=== PATIENT | male | born 1995 | race Caucasian/White ===

== ENCOUNTER 2025-11-15 01:45 | Day surgery (SDC) | payer OTHER, SELFPAY ==
[2025-08-27 14:27] VITALS: BMI 26.9
[2025-10-30 08:31] VITALS: BMI 26.9
--- OUTSIDE RECORDS SUMMARY | 2025-11-15 01:49 | XMS_ITS | Clinical Summary ---
Author Organization [facility] Address [address] [place] [address] Care Team Providers Care C Software Engineer Name Role Phone Tyson Keith MD Primary Care Provider Allergies Active Allergy Reactions Criticality Noted Date Comments Amoxicillin-Pot Clavulanate Unknown 08/30/20 13 Penicillins Hives,Rash Low 06/02/2012 Medications busPIRone (BUSPAR) 10 MG tabletIndicatio ns:Anxiety Take 1 tablet (10 mg total) by mouth 2 (two) times daily. 180 tablet 1 2 Active Additional Information Patient not taking.Reported on 04/04/2023 LORazepam (ATIVAN) 1 MG tabletIndicatio ns:Anxiety Take 1 tablet (1 mg total) by mouth every 8 (eight) hours as needed for Anxiety. 30 tablet 2 Active Additional Information Patient not taking.Reported on 04/04/2023 PARoxetine (PAXIL) 10 MG tabletIndicatio ns:Anxiety Take 1 tablet (10 mg total) by mouth every morning. 30 tablet 3 2 Active Additional Information Patient not taking.Reported on 04/04/2023 Active Problems Problem Noted Date Diagnosed Date Epistaxis 04/04/2023 Assessment & Plan (04/04/2023 5:13 PM CDT): On and off epistaxis for years. States not you to him. Has been chronic. Was never evaluated by ENT.--We will go ahead and refer patient to ENT. Call if he has profuse epistaxis or go to ER. Allergic rhinitis 04/04/2023 Assessment & Plan (04/04/2023 5:13 PM CDT): Start Zyrtec 10 mg nightly. Monitor. Major depressive disorder 06/07/2022 Assessment & Plan (06/07/2022 9:57 AM CDT): Start patient on Lexapro 10 mg daily. She was advised to take Lexapro compliantly and faithfully and that it will take at least 3 to 4 weeks to kick in. He denies any suicidal ideation/self-harm. Monitor. Counseling done. Reevaluate patient in 3 to 4 weeks. Abdominal pain, right lower quadrant 04/22/2020 Anxiety 03/15/2019 Assessment & Plan (08/18/2022 2:13 PM CDT): Currently is on Lexapro 10 mg daily. He states Lexapro not really helping him. He was on BuSpar before 7.5 mg twice daily. Will wean off Lexapro slowly by starting at 5 mg daily for 2 weeks then every other day for another 2 weeks then discontinue. Start patient on BuSpar 10 mg twice daily. Consider starting patient on Paxil. Reevaluate patient in 2 weeks. Otherwise she will call me by phone.--- Again, states she is not depressed. Denies any suicidal ideation/self-harm. He is more anxious for no reason. Discussed adverse effects of meds. Counseling done. Assessment & Plan (06/07/2022 9:57 AM CDT): He stopped taking his BuSpar years ago. We will get started on Lexapro 10 mg daily. Monitor. Counseling done. Evaluate patient in 3 to 4 weeks. Assessment & Plan (04/02/2019 9:08 AM CDT): Anxiety is much better. Doing well with BuSpar 7.5 mg twice daily. Advised to continue same dose for now. No adverse reactions noted. Assessment & Plan (03/15/2019 4:31 PM CDT): Trial of BuSpar 7.5 mg twice daily. Adverse effects discussed. We will continue to monitor. Right otitis media 02/20/2015 Assessment & Plan (04/04/2023 4:56 PM CDT): Right tympanic membrane congested with poor light reflex and landmarks.--Start patient on Ceftin 250 mg twice daily for 10 days. May take Tylenol Extra Strength 2 every hours as needed. Increase fluids. Cellulitis of lower extremity 08/30/2013 Overview (03/15/2019): Laterality: Left Attention deficit hyperactivity disorder (ADHD) 03/12/2011 Overview (08/26/2021): Overview: Immunizations Immunization Administration Dates Next Due Tdap (Boostrix) 06/23/2011 Family History Relation Status Comments Father Alive Mother Alive Social History Tobacco Use Types Packs/Day Years Used Date Smoking Tobacco: Former Cigarettes 0.5 2 Passive Smoke Exposure: Past Smokeless Tobacco: Never Tobacco Cessation:Counseling Given: Not Answered Alcohol Use Standard Drinks/Week Comments Yes 0 (1 standard drink = 0.6 oz pur e alcohol) socially PHQ-2 Answer Date Recorded Patient Health Questionnaire-2 Score 0 04/04/2023 Sex and Gender Information Value Date Recorded Sex Assigned at Male 05/15/2025 2:59 PM CDT Legal Sex Male 7:39 PM CDT Gender Identity Not on file Sexual Orientation Not on file Last Filed Vital Signs Vital Sign Reading Time Taken Comments Blood Pressure 126/78 04/04/2023 4:47 PM CDT Pulse 78 04/04/2023 4:47 PM CDT Temperature 36.9 C (98.4 F) 04/04/2023 4:47 PM CDT Respiratory Rate 20 04/04/2023 4:47 PM CDT Oxygen Saturation 96% 04/04/2023 4:47 PM CDT Inhaled Oxygen Concentration - - Weight 88.3 kg (194 lb 9.6 oz) 04/04/2023 4:47 P M CDT Height 188 cm (6' 2) 04/04/2023 4:47 PM CDT Body Mass Index 24.99 04/04/2023 4:47 PM CDT Plan of Treatment Health Maintenance Due Date Last Done Comments Annual Physical 1999 Hepatitis C 2014 Hepatitis B Vaccines (1 of 3 - 19+ 3-dose series) 2015 DTaP, Tdap and Td Vaccines ( 2 - Td or Tdap) 06/23/2021 06/23/2011 HPV Vaccines (1 - 3-dose SCD M series) 2023 PHQ-2 (Physician [place]) 11/28/2024 COVID-19 Vaccine (1 - 2024-2 6 season) 2025 Influenza Adult (#1) 2025 Hepatitis A Vaccines Aged Out No long er eligible based on patient's age to complete this topic Meningococcal B Vaccine Aged Out No l onger eligible based on patient's age to complete this topic Meningococcal Vaccine Aged Out No arelis ana eligible based on patient's age to complete this topic Pneumococcal Vaccine: Pediat rics (0 to 5 Years) and At-Risk Patients (6 to 49 Years) Aged Out No longer eligi ble based on patient's age to complete this topic RSV Immunizations Under 20 Months Aged Out No longer eligible based on patient's age to complete this topic Insurance [employer] Care Teams C Software Engineer Relationship Specialty Start Date End Date Tyson Keith MD PCP - General FAMILY PRACTICE 03/12/19
--- OUTSIDE RECORDS SUMMARY | 2025-11-15 01:49 | XMS_ITS | Clinical Summary ---
Author Organization [facility] Address [address] [place] [address] Care Team Providers Care Veterinary Practice Manager Name Role Phone Tyson Keith MD Primary Care Provider [phone] Source Comments [facility],non-owned Affiliates and Associated Physician Practices is amultiple site organization consisting of ambulatory clinics and hospital sitesin [place], [place], [place] and [place]. This disclosure is being madepursuant to the Care Everywhere program and may not contain all information available regarding this patient. Last updated 18.[facility] Allergies Active Allergy Reactions Criticality Noted Date Comments Amoxicillin Urticaria 06/02/2012 Medications * This document contains information received from the source organization and may not represent a complete record from that organization. * Be aware that medications may not be up to date on this document. Alwaysverify current medications with the patient. sertraline (ZOLOFT) 25 MG tablet Take 25 mg by mouth once daily Active docusate sodium (COLACE) 100 MG capsule Take 1 capsule by mouth once daily as needed for Constipation 30 capsule 0 Active Active Problems Problem Noted Date Diagnosed Date Abdominal pain, right lower quadrant 04/22/2020 Metatarsal fracture 06/02/2012 Attention deficit hyperactivity disorder (ADHD) 03/12/2011 Overview (10/05/2015): Social History Tobacco Use Types Packs/Day Years Used Date Smoking Tobacco: Some Days Smokeless Tobacco: Never Comments:1 pack every other week Alcohol Use Standard Drinks/Week Comments Yes 7 (1 standard drink = 0.6 oz pur e alcohol) AUDIT-C Answer Date Recorded Q1: How often do you have a drink containing alc ohol? 2-4 times a month 04/23/2020 Q2: How many drinks containi ng alcohol do you have on a typical day when you are drinking? 7 to 9 04/23/2020 Q3: How often do you have si x or more drinks on one occasion? 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 Gender Identity Not on file Sexual Orientation Not on file Last Filed Vital Signs Vital Sign Reading Time Taken Comments Blood Pressure 120/59 04/24/2020 11:36 AM CDT Pulse 67 04/24/2020 11:36 AM CDT Temperature 36.2 C (97.2 F) 04/24/2020 11:36 AM CDT Respiratory Rate 16 04/24/2020 11:36 AM CDT Oxygen Saturation 98% 04/24/2020 11:36 AM CDT Inhaled Oxygen Concentration - - Weight 86 kg (189 lb 9.5 oz) 04/22/2020 11:09 PM CDT Height 188 cm (6' 2) 04/22/2020 7:23 PM CDT Body Mass Index 24.34 04/22/2020 7:23 PM CDT Plan of Treatment Health Maintenance Due Date Last Done Comments HIV SCREENING 2011 HEPATITIS C SCREENING 06/21/2014 DTAP/TDAP/TD VACCINES (1 - Tdap) 2015 HEPATITIS B VACCINE (1 of 3 - 19+ 3-dose series) 2015 PNEUMOCOCCAL VACCINE (1 of 2 - PCV) 2015 HPV VACCINE (1 - 3-dose SCDM series) 2023 DEPRESSION SCREENING 11/28/2024 COVID-19 VACCINE (1 - 2024-2 6 season) 2025 INFLUENZA VACCINE (#1) 2025 ZOSTER VACCINE (1 of 2) 2046 HIB VACCINE Aged Out No longer eligi ble based on patient's age to complete this topic MENINGOCOCCAL (Group B) VACC INE SHARED DECISION-MAKING Aged Out No longer eligibl e based on patient's age to complete this topic MENINGOCOCCAL GROUPS A/C/Y/W VACCINE Aged Out No longer eligible b ased on patient's age to complete this topic Insurance [employer] Advance Directives * Full Code (Latest Code Status on File) Date Activated Date Inactivated Comments 04/22/2020 11:11 PM 04/24/2020 5:01 PM Care Teams Veterinary Practice Manager Relationship Specialty Start Date End Date Tyson Keith MD PCP - General Family Medicine 04/23/20
[2025-11-15 12:15] VITALS: BP 143/76; PULSE 72; RESP 18; TEMP 36.6; O2SAT 99; BMI 27.6
[2025-11-15] MEDS: LACTATED RINGERS 1,000 ML 150 ML IV CONT (12:23)
[2025-11-15] MEDS: SIMETHICONE ORAL SUSPENSION 20 MG/0.3 ML 30 ML BOTTLE 1.8 ML PO (12:25)
--- NOTE | 2025-11-15 13:12 | WPDANESEPPF ---
Anes - Initial Pre Proc Eval Procedure: Operation Date: 11/15/25 13:30 Proposed Procedures p EGD & Diagnostic Colonoscopy - Karlos Ruiz MD Date/Time: 11/15/25 13:12 Surgeon: Karlos Ruiz MD Pre Op Diagnosis: Hematemesis, Diarrhea, unspecified, GERD Patient Data Age: 30 Gender: M Height: 1.88 m Weight: 97.4 kg Last Vital Signs Temp 97.8 F 11/15/25 12:15 Pulse 72 11/15/25 12:15 Resp 18 11/15/25 12:15 BP 143/76 H 11/15/25 12:15 Pulse Ox 99 11/15/25 12:15 O2 Del Method Room Air 11/15/25 12:15 Allergies Allergy/AdvReac Type Severity Reaction Status Date / Time amoxicillin AdvReac Mild hives Verified 11/15/25 12:14 Home Medications ?Medication ?Instructions ?Recorded ?Confirmed ?Type cyclobenzaprine 10 mg tablet 10 mg PO TID PRN muscle spasm #30 07/26/25 08/27/25 Rx tabs Patient hx anesthesia problems: none Family hx anesthesia problems: none Results Review: All pre-operative results and documents have been reviewed as part of the pre-operative evaluation. [facility] Past Medical History Medical History IBS (irritable bowel syndrome) GERD (gastroesophageal reflux disease) Social History Social History Smoking status: Former smoker Tobacco type: cigarettes Second hand tobacco smoke exposure: No Alcohol intake: current Drinks per week: 8 Substance use: never Substance use type: does not use Lack of Transportation: No Lack of Food: Never True Current Housing: I Have Housing Concerned About Future Housing: No Difficulty Paying Gas/Electric Bills: No Difficulty Paying for Meds: No Currently Unemployed: No Education: Trade/Vocational Certificate Difficulty w/ Childcare or Family Care: No Living arrangements: with family Occupation/Education: occupation 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[employer] Gender identity (if verbalized by the patient): Male Sexual Orientation (if Verbalized by the Patient): Straight or Heterosexual Spiritual care concerns: No Agree to blood products: Yes Anes - Eval Final PreProcedure Day of Procedure 11/15/25 13:12 Patient weight: normal Lungs: normal air movement Airway: Mallampati scale class II Neurological: alert and oriented Last oral intake: >/= 8 hours ASA classification: II Emergent: no Anesthetic plan: proceed Anesthesia type and monitoring: general GIVS and standard monitoring Results Review: All pre-operative results and documents have been reviewed as part of the pre-operative evaluation. GERD, change in bowel habits, ex smoker quit 2020. Informed Consent: The patient's anesthetic plan and its attendant risks and benefits were discussed with the patient/family/POA. Questions were solicited and answers provided to the satisfaction of the patient/family/POA.
--- NOTE | 2025-11-15 13:17 | P.HP_ITS ---
H&P: HPI History of Present Illness Date/Time: 11/15/25 13:17 Chief Complaint: GERD-diarrhea Narrative: Patient referred for EGD for longstanding heartburn for which he takes regularly omeprazole, with partial relief. He denies dysphagia, nausea, vomiting or unintentional weight loss. In addition he endorses chronic diarrhea for several years not associated with abdominal pain but with occasional rectal bleeding. He is also referred for colonoscopy. Review of Systems Review of Systems: All systems reviewed & are unremarkable except as noted in HPI and below PMFSH Past Medical History Medical History IBS (irritable bowel syndrome) GERD (gastroesophageal reflux disease) Social History Social History Smoking status: Former smoker Tobacco type: cigarettes Second hand tobacco smoke exposure: No Alcohol intake: current Drinks per week: 8 Substance use: never Substance use type: does not use Lack of Transportation: No Lack of Food: Never True Current Housing: I Have Housing Concerned About Future Housing: No Difficulty Paying Gas/Electric Bills: No Difficulty Paying for Meds: No Currently Unemployed: No Education: Trade/Vocational Certificate Difficulty w/ Childcare or Family Care: No Living arrangements: with family Occupation/Education: occupation Additional occupation/education comments: [address] Gender identity (if verbalized by the patient): Male Sexual Orientation (if Verbalized by the Patient): Straight or Heterosexual Spiritual care concerns: No Agree to blood products: Yes Meds Home Medications and Allergies Home Medications ?Medication ?Instructions ?Recorded ?Confirmed ?Type cyclobenzaprine 10 mg tablet 10 mg PO TID PRN muscle s pasm #30 07/26/25 08/27/25 Rx tabs Allergies Allergy/AdvReac Type Severity Reaction Status Date / Time amoxicillin AdvReac Mild hives Verified 11/15/25 12:14 Vital Signs Vital Signs - 24 hr 11/15/25 12:15 Temperature 97.8 F Pulse Rate 72 Respiratory Rate 18 Blood Pressure 143/76 H Pulse Oximetry 99 Oxygen Delivery Room Air Exam Const: General: cooperative and healthy appearing Resp: Effort & Inspection: normal respiratory effort and able to speak in complete sentences Auscultation: clear to auscultation bilaterally Cardio: Rate: regular rate Rhythm: regular rhythm GI: Inspection: normal to inspection GI Palp: No No hepatosplenomegaly present Auscultation: normal bowel sounds Rectal Exam: deferred Skin: General skin exam: normal color Psych: Appearance: grossly normal Mental Status: mental status grossly normal Assessment and Plan Assessment and plan (1) GERD (gastroesophageal reflux disease): Code(s): K21.9 - Gastro-esophageal reflux disease without esophagitis Status: Acute Assessment and Plan: The patient is deemed a good candidate for the procedure. Consent signed. Will proceed. (2) Diarrhea: Code(s): R19.7 - Diarrhea, unspecified Status: Acute Prior Studies I have reviewed the following patient records and this information was taken into consideration when formulating the assessment and plan.: previous labs, previous ER visits, previous hospitalizations and previous clinic visits
--- NOTE | 2025-11-15 13:43 | SUR.OPER ---
egd completed at 1338, colonoscopy started at 1344
--- NOTE | 2025-11-15 13:49 | S_PTH ---
PATIENT: Mariano Mccann LOC: [facility] U#:[id number] AGE/SX: 30/M ROOM: RE11/15/[address]: Karlos Ruiz MD : 1995 BED: DIS: 11/15/2025 SPEC #: [id number] RECD: 11/15/25 14:22 STATUS: EVERETTE REMinisterio #: [id number] SUMEET: 11/15/25 13:[address]: Karlos Ruiz DEPT: [facility] Surgical RECD BY: Patsy Hunter ENTERED: 11/15/25 14:24 SP TYPE: Surgical OTHR DR: Zandra Chauhan, SANDIE Tissues: A - Colon Biopsy B - Colon Biopsy C - Esophageal Biopsy D - Gastric Biopsy E - Gastric Biopsy Procedures: Hematoxylin and Eosin Stain Gross and Microscopic Level 4
[2025-11-15 13:56] VITALS: BP 104/70; PULSE 78; RESP 18; O2SAT 100
[2025-11-15 14:06] VITALS: BP 105/65; PULSE 70; RESP 18; O2SAT 98
[2025-11-15 14:16] VITALS: BP 101/66; PULSE 69; RESP 18; O2SAT 98
== END 2025-11-15 14:35 | disposition home or self-care (01) ==
PROVIDERS: PCP Nurse Practitioner Family; Referring Provider Nurse Practitioner Family; Visit Provider Internal Medicine Gastroenterology
PROC: 0DJ08ZZ Inspection of Upper Intestinal Tract, Via Natural or Artificial Opening Endoscopic (ICD-10-PCS; CPT 45378; principal; 2025-11-15 13:30)
DX: K20.0 Eosinophilic esophagitis (principal); K44.9 Diaphragmatic hernia without obstruction or gangrene; K29.70 Gastritis, unspecified, without bleeding; K58.9 Irritable bowel syndrome, unspecified; Z87.891 Personal history of nicotine dependence
CPT/HCPCS: 43239; 45380; 88305; J2003; J2704; J7120